=== PATIENT | male | born 1950 | race Two or more races ===

== ENCOUNTER 2025-02-24 19:30 | Emergency (ER) | payer OTHER ==
[~2025-02-24] VITALS: Ht 167.6 cm; Wt 59.9 kg
[2025-02-24] MEDS ORDERED: NORVASC10 MG (19:50)
[2025-02-24] MEDS ORDERED: ORPHENADRINE CITRATE 30 MG/ML AMPUL IM STA (20:11)
[2025-02-24] MEDS ORDERED: DEXAMETHASONE SODIUM PHOSPHATE 4 MG/ML VIAL IM STA (20:11)
[2025-02-24] MEDS ORDERED: ENALAPRILAT DIHYDRATE 2.5 MG/2 ML VIAL IV STA (20:11)
[2025-02-24] MEDS ORDERED: ORPHENADRINE CITRATE 30 MG/ML AMPUL ONE ×2 (20:29→21:02)
[2025-02-24] MEDS ORDERED: DEXAMETHASONE SODIUM PHOSPHATE 4 MG/ML VIAL ONE (20:29)
[2025-02-24] MEDS ORDERED: ENALAPRILAT DIHYDRATE 1.25 MG/ML VIAL IV ONE (20:29)
[2025-02-24 21:02] LABS: BASO % 1.0 % (0.1-1.2); EOS # 0.20 (0.04-0.54); EOS % 2.3 % (0.7-7.0); LYMPH # 2.68 (1.18-3.74); LYMPH % 30.3 % (19.3-53.1); MEAN PLATELET VOLUME 10.70 fl (9.4-12.4); MONO # 1.27 (0.24-0.82); NEUT # 4.58 (1.56-6.13); NEUT % 51.8 % (34.0-71.1); RED CELL DISTRIBUTION WIDTH 13.1 % (11.6-14.4)
[2025-02-24 21:10] LABS: MONO % 14.4 % (4.7-12.5)
[2025-02-24 22:04] LABS: BUN CREA RATIO 16.0 (7.0-25.0); CREATININE SERUM 0.99 mg/dL (0.70-1.30); GFR 73.5; GLUCOSE FASTING 108.0 mg/dL (65-100); OSMOLALITY SERUM 276.0 MOSM/KG (275-295); TSH 1.45 uIU/mL (0.358-3.74)
[2025-02-24] MEDS ORDERED: NIFEDIPINE 10 MG CAPSULE PO STA (22:18)
[2025-02-24] MEDS ORDERED: NIFEDIPINE 10 MG CAPSULE PO ONE (22:23)
[2025-02-24] MEDS ORDERED: ACETAMINOPHEN500 M1 PO (22:46)
[2025-02-24] MEDS ORDERED: METAXALONE400 MG PO (22:46)
== END 2025-02-24 23:03 | disposition home or self-care (01) ==
LOC: ER 19:31
PROVIDERS: General Practice
DX: I10 Essential (primary) hypertension (principal); R07.89 Other chest pain; R51.9 Headache, unspecified
CPT/HCPCS: 36415; 71045; 93005; 96365; 96372; 99283; J1100; J2360; J3490